=== PATIENT | female | born 1960 | race Caucasian/White ===

== ENCOUNTER 2017-11-13 14:27 | Emergency (ER) | payer MEDICAID ==
[~2017-11-13 14:27] MED LIST: AMOX500T PO; LORC10TA PO; Z.0.NO CURRENT MEDS
[2017-11-13 14:33] VITALS: BP 141/76; PULSE 66; RESP 20; TEMP 98; O2SAT 97
[2017-11-13] MEDS ORDERED: BENZ1CAP51 PO (14:46)
--- NOTE | 2017-11-13 14:47 | PD ---
HPI Chief Complaint: Cold / Flu Symptoms Time Seen by Provider: 14:39 Travel History International Travel<30 days: No Contact w/Intl Traveler<30days: No Traveled to known affect area: No History of Present Illness HPI 57-year-old female presents to the emergency department for evaluation of cold symptoms that started yesterday. She reports cough and body aches. No fevers. No abdominal pain. No vomiting. No shortness of breath. She reports no chronic medical problems. She states she is prescribed some pain medication including ibuprofen. No exacerbating or alleviating factors. Mild severity PFSH Social History Alcohol Use: No Tobacco Use: No Substance Use: No Allergies-Medications (Allergen,Severity, Reaction): Coded Allergies: No Known Allergies (Verified Adverse Reaction, 09/07/17) Reported Meds & Prescriptions Reported Meds & Active Scripts Active Lorcet 10/650 (Acetaminophen/Hydrocodone Bitart) Tab 0.5-1 Tab PO Q4-6H PRN PAIN FOR PAIN Amoxil (Amoxicillin) 500 Mg Cap 1 Tab PO TID 10 Days Reported No Current Meds (Miscellaneous Medication) Misc Review of Systems Except as stated in HPI: all other systems reviewed are Neg Physical Exam Narrative GENERAL: Well-nourished, well-developed female patient, ambulatory. Afebrile. SKIN: Focused skin assessment warm/dry. HEAD: Normocephalic. Atraumatic. ENT: Mucosa pink and moist. No erythema or exudates. No uvular edema. No uvular , palatal, or tonsillar deviation. Airway patent. Nasal turbinates appear normal without nasal blood, purulent drainage or septal hematoma. Bilateral tympanic membranes clear without erythema or perforation. EYES: No scleral icterus. No injection or drainage. NECK: Supple, trachea midline. No JVD or lymphadenopathy. CARDIOVASCULAR: Regular rate and rhythm without murmurs, gallops, or rubs. RESPIRATORY: Breath sounds equal bilaterally. No accessory muscle use. Lung sounds are clear to auscultation. GASTROINTESTINAL: Abdomen soft, non-tender, nondistended. MUSCULOSKELETAL: No cyanosis, or edema. BACK: Nontender without obvious deformity. No CVA tenderness. Data Data Last Documented VS Vital Signs Date Time Temp Pulse Resp B/P (MAP) Pulse Ox O2 Delivery O2 Flow Rate FiO2 11/13/17 14:33 98.0 66 20 141/76 (97) 97 MDM Medical Decision Making Medical Screen Exam Complete: Yes Emergency Medical Condition: Yes Medical Record Reviewed: Yes Differential Diagnosis Viral URI versus sinusitis versus bronchitis versus pneumonia Narrative Course 57-year-old female presents to the emergency department for evaluation of cold symptoms that started yesterday. She appears well on exam. Her lung sounds are clear to auscultation. Vital signs are stable. Symptoms and physical are consistent with a viral upper respiratory infection. She will be discharged with a prescription for benzonatate capsules for cough. She is to follow with her primary care physician. She is return here for any acute worsening of symptoms. The patient was discharged in stable condition with instructions, including return instructions and follow up instructions. Diagnosis Primary Impression: Viral upper respiratory tract infection with cough Referrals: Primary Care Physician call for appointment Patient Instructions: General Instructions, Upper Respiratory Infection (ED) Departure Forms: Tests/Procedures, Work Release Enter return to work date: November 15, 2017 Additional Instructions: Rest. [id number] Tylenol or ibuprofen as needed. Take benzonatate capsules as directed as needed for cough. Follow-up with a primary care physician. Return to the emergency department for any acute worsening of symptoms. Med/Other Pt SpecificInfo: Prescription(s) given Scripts Benzonatate (Benzonatate) 200 Mg Cap 200 MG PO TID Y for COUGH, #21 CAP 0 Refills Prov: Kateryna Stroud 11/13/17 Disposition: 01 DISCHARGE HOME Condition: Stable Kateryna Stroud November 13, 2017 14:47
== END 2017-11-13 14:58 | disposition home or self-care (01) ==
LOC: NEPK 14:27
DX: J06.9 Acute upper respiratory infection, unspecified (principal)
CPT/HCPCS: 99283

== ENCOUNTER 2018-01-01 14:55 | Emergency (ER) | payer MEDICAID ==
[~2018-01-01] VITALS: Ht 170.2 cm; Wt 90.0 kg
[~2018-01-01 14:55] MED LIST changes: +BENZ1CAP51 PO
[2018-01-01 15:13] VITALS: BP 147/70; PULSE 81; RESP 16; TEMP 97.5; O2SAT 96
[2018-01-01] MEDS ORDERED: IBUPROFEN 800 MG TAB PO ONE (17:15)
--- NOTE | 2018-01-01 17:48 | RADRPT ---
EXAM DATE: 01/01/2018 5:28 PM EDT AGE/SEX: 57 years / Female INDICATIONS: Right ankle pain, denies injury CLINICAL DATA: This is the patient's initial encounter. Patient reports that signs and symptoms have been present for 3 days and indicates a pain score of 6/10. MEDICAL/SURGICAL HISTORY: Arthritis. None. COMPARISON: No prior exams available for comparison. FINDINGS: Bony structures are intact and in normal alignment. Joints are intact without dislocation or signifi cant arthropathy. Osseous density is normal. Soft tissues are unremarkable. No radiopaque foreign bodies seen. CONCLUSION: No acute abnormality is seen. Electronically signed by: Gianni Romo MD 01/01/2018 5:47 PM EDT
--- NOTE | 2018-01-01 18:02 | PD ---
HPI Chief Complaint: Injury Time Seen by Provider: 17:00 Travel History International Travel<30 days: No Contact w/Intl Traveler<30days: No Traveled to known affect area: No History of Present Illness HPI 57-year-old female presents to emergency room with complaint of right ankle pain since last night. Does not know if she injured it somehow. Denies paresthesias, loss of sensation, decreased range of motion, decreased strength to the affected extremity. Reports ankle swelling. Reports being ambulatory on the affected extremity. Rates pain 5/10. Says the pain radiates to her foot and upper leg. Has tried taking Tylenol and ibuprofen with good relief of symptoms. Worse with ambulation. Better at rest. Primary care provider is Dr. Wade. Denies significant past medical history. No known allergies. Has no other medical complaints. No other modifying factors or associated signs and symptoms. [facility] Social History Alcohol Use: No Tobacco Use: No Substance Use: No Allergies-Medications (Allergen,Severity, Reaction): Coded Allergies: No Known Allergies (Verified Adverse Reaction, 09/07/17) Reported Meds & Prescriptions Reported Meds & Active Scripts Active Naproxen 500 Mg Tab 500 Mg PO BID PRN Benzonatate 200 Mg Cap 200 Mg PO TID PRN Lorcet 10/650 (Acetaminophen/Hydrocodone Bitart) Tab 0.5-1 Tab PO Q4-6H PRN PAIN FOR PAIN Amoxicillin 500 Mg Cap 1 Tab PO TID 10 Days Reported No Current Meds (Miscellaneous Medication) [facility] [place] Review of Systems Except as stated in HPI: all other systems reviewed are Neg Physical Exam Narrative GENERAL: Well-nourished, well-developed female patient, in no acute distress SKIN: Warm and dry. HEAD: Atraumatic. Normocephalic. EYES: Pupils equal and round. No scleral icterus. No injection or drainage. ENT: Mucosa pink and moist. Airway patent. NECK: Trachea midline. CARDIOVASCULAR: Regular rate. RESPIRATORY: No accessory muscle use. GASTROINTESTINAL: Obese. MUSCULOSKELETAL: Right ankle with point tenderness to the lateral and medial malleoli zone with palpation; minimal edema; no obvious deformity; without ecchymosis or erythema. Right lower extremity is supple and nontense with 2+ pedal pulse and sensory intact. No obvious deformities. No clubbing. No cyanosis. No edema. NEUROLOGICAL: Awake and alert. Oriented 3. No obvious cranial nerve deficits. Motor grossly within normal limits. Normal speech. PSYCHIATRIC: Appropriate mood and affect; insight and judgment normal. Data Data Last Documented VS Vital Signs Date Time Temp Pulse Resp B/P (MAP) Pulse Ox O2 Delivery O2 Flow Rate FiO2 01/01/18 15:13 97.5 81 16 147/70 (95) 96 Orders Orders Ankle, Complete ([id number]) (01/01/18 17:14) Ibuprofen (Motrin) (01/01/18 17:15) [facility] Medical Decision Making Medical Screen Exam Complete: Yes Emergency Medical Condition: Yes Medical Record Reviewed: Yes Differential Diagnosis Arthritis, sprain, fracture, bone spur Narrative Course 57-year-old female with right ankle pain. Ibuprofen and right ankle x-ray ordered. 1805: Right ankle x-ray concluded: Ankle X-Ray 01/01/18 1714 Signed Impressions: CONCLUSION: No acute abnormality is seen. Patient provided a copy of the x-ray report. I have for the patient ankle stirrup splint and Bassam bandage for support and she declined. Naproxen prescribed for home. Instructed patient to follow-up outpatient if symptoms persist greater than 7-10 days. Instructed patient to follow up with primary care provider. Patient verbalizes understanding and agreement with treatment plan. Patient is medically cleared and stable for discharge. Discussed reasons to return to the emergency department. Patient agrees with treatment plan. The patients vital signs are stable and the patient is stable for outpatient follow-up and treatment. Patient discharged home, stable and in no acute distress. Diagnosis Primary Impression: Right ankle pain Qualified Codes: M25.571 - Pain in right ankle and joints of right foot Referrals: [employer] Primary Care Physician Additional Instructions: Tylenol or ibuprofen as directed and as needed for pain and inflammation Rest, ice, compress, and elevate extremity to decrease pain and inflammation Ankle Brace for support Walker for support Avoid aggravating activity; increase activity as tolerated Follow-up with primary care provider Follow-up with 3d artist Follow-up if symptoms persist greater than 7-10 days Return to the emergency department immediately with worsening of symptoms Med/Other Pt SpecificInfo: Prescription(s) given Scripts Naproxen (Naproxen) 500 Mg Tab 500 MG PO BID Y for PAIN SCALE 1 TO 10, #20 TAB 0 Refills Prov: Debbie Connell 01/01/18 Disposition: 01 DISCHARGE HOME Condition: Stable Debbie Connell Jan 01, 2018 18:02
[2018-01-01] MEDS ORDERED: NAPR500T2 PO (18:05)
== END 2018-01-01 18:16 | disposition home or self-care (01) ==
LOC: NEPK 14:55
DX: M25.571 Pain in right ankle and joints of right foot (principal); E66.9 Obesity, unspecified; Z79.899 Other long term (current) drug therapy
CPT/HCPCS: 73610; 99283